=== PATIENT | female | born 1955 | race Caucasian/White ===

== ENCOUNTER 2017-07-15 08:39 | Emergency (ER) | payer BC, OTHER ==
--- NOTE | 2017-07-15 09:11 | Emergency Department Record ---
History of Present Illness - General Chief Complaint: Back Pain/Injury Stated Complaint: BACK PAIN Time Seen by Provider: 07/15/17 08:54 Source: Patient Mode of Arrival: EMS Limitations: No limitations - History of Present Illness Initial Comments: The patient is here due to R mid back and rib pain. The patient fell off a ladder 3 weeks ago and was seen in [place] where she did have she believes rib xrays and a head CT. She was told her xrays were neg and was discharged. The patient had been doing well up until the last 3 days when she developed worsening R lower rib and mid back pain. The pain is much worse with twisting and movement. The patient denies any CP, SOB, AP, or hematuria. EMS found the patient to be in quite a bit of pain so she did receive 100mcg of Fentanyl which did cause her to be nauseated and sweaty. She is feeling better now from that. MD Complaint: Back pain Onset/Timin -: Days(s) Similar Symptoms Previously: No Place: Home Radiation: None Severity: Moderate Quality: Other Consistency: Constant Improves With: None Context: Fall Associated Symptoms: Nausea/vomiting Treatments Prior to Arrival: NSAIDS, Prescription analgesics - Related Data Home Medications Medication Instructions Recorded Confirmed Last Taken Ascorbic Acid [Vitamin C] 2 tab PO DAILY 07/15/17 07/15/17 07/15/17 Atorvastatin Calcium [Lipitor] 40 mg PO QHS 07/15/17 07/15/17 07/14/17 Biotin 1 mg PO DAILY 07/15/17 07/15/17 07/15/17 Bisoprol/Hydrochlorothiazide 1 each PO BID 07/15/17 07/15/17 07/15/17 [Bisoprolol-Hctz 10-6.25 mg Tab] Calcium Carbonate [Calcium] 600 mg PO BID 07/15/17 07/15/17 07/15/17 Citalopram Hydrobromide 20 mg PO BID 07/15/17 07/15/17 07/15/17 [Citalopram HBr] Cyanocobalamin (Vitamin B-12) 2,500 mcg SL DAILY 07/15/17 07/15/17 07/15/17 [Vitamin B-12] Nitrofurantoin [place] [Macrobid] 100 mg PO QHS 07/15/17 07/15/17 07/14/17 [place]-3S/Dha/Epa/Fish Oil [Fish 1 tab PO DAILY 07/15/17 07/15/17 07/15/17 Oil 1,200 mg Softgel] Previous Rx's Medication Instructions Recorded Naproxen [Naprosyn] 500 mg PO BID #14 tablet. 07/15/17 Orphenadrine Citrate [Norflex] 100 mg PO Q12H PRN #14 tab 07/15/17 Allergies Allergy/AdvReac Type Severity Reaction Status Date / Time metronidazole [From Flagyl] Allergy RASH Verified 07/15/17 08:57 promethazine [From Phenergan] AdvReac HYPERSENSIT Verified 07/15/17 08:57 IVITY sulfamethoxazole AdvReac NAUSEA AND Verified 07/15/17 08:57 [From Bactrim] VOMITING trimethoprim [From Bactrim] AdvReac NAUSEA AND Verified 07/15/17 08:57 VOMITING Travel Screening - Travel/Exposure Within Last 30 Days Have you traveled within the last 30 days?: No - Travel/Exposure Within Last Year Have you traveled outside the [place] in the last year?: No - Additonal Travel Details Have you been exposed to anyone with a communicable illness?: No - Travel Symptoms Symptom Screening: None Review of Systems Constitutional: Denies: Chills, Fever Eyes: Denies: Eye discharge ENT: Denies: Congestion Respiratory: Denies: Cough Past Medical History - SOCIAL HISTORY Smoking Status: Never smoker Alcohol Use: Occasional Drug Use: None - RESPIRATORY Hx Respiratory Disorders: No Hx Asthma: No - CARDIOVASCULAR Hx Cardio Disorders: Yes Hx Hypertension: Yes Comment:: high cholesterol - NEURO Hx Neuro Disorders: No - GI Hx GI Disorders: Yes Hx Diverticulitis: Yes - Hx Genitourinary Disorders: No Hx UTI: Yes - ENDOCRINE Hx Endocrine Disorders: No - MUSCULOSKELETAL Hx Musculoskeletal Disorders: No - PSYCH Hx Psych Problems: Yes Hx Depression: Yes Family Medical History Any Significant Family History?: No Physical Exam - General General Appearance: Alert, Oriented x3, Cooperative, No acute distress - Head Head exam: Atraumatic, Normocephalic, Normal inspection - Eye Eye exam: Normal appearance, PERRL - Neck Neck exam: Normal inspection, Full ROM. negative: Tenderness - Respiratory Respiratory exam: Normal lung sounds bilaterally, Chest wall tenderness (The R mid to lower ribs are extremely tender to palpation. ). negative: Accessory muscle use, Decreased breath sounds, Respiratory distress - Cardiovascular Cardiovascular Exam: Regular rate, Normal rhythm, Normal heart sounds, Bradycardia - GI/Abdominal GI/Abdominal exam: Soft, Normal bowel sounds. negative: Guarding, Rebound, Rigid, Tenderness - Extremities Extremities exam: Normal inspection, Full ROM, Normal capillary refill. negative: Tenderness Image of Full Body: 1 - Location of tenderness with spasm. - Back Back exam: Reports: Normal inspection, Muscle spasm, Paraspinal tenderness (The pain is very reproducible in the R lateral mid thoracic area.). Denies: CVA tenderness (R), CVA tenderness (L), Vertebral tenderness - Neurological Neurological exam: Alert. negative: Motor sensory deficit Course Vital Signs 07/15/17 08:43 Temperature 98.1 F Pulse Rate 49 L Respiratory 18 Rate Blood Pressure 164/84 Pulse Ox 98 - Reevaluation(s) Reevaluation #1: The patient is doing better. Her sweating has resolved since the fentanyl has wore off. 07/15/17 10:10 07/15/17 13:05 Reevaluation #2: The patient is doing better at this time. She has no pain when not moving. She is able to get up and walk with spasms in the R mid back area with twisting and moving. The patient denies any AP, weakness, lightheadedness or any sweating. 07/15/17 10:44 07/15/17 11:25 The patient is still doing well and does feel comfortable going home. Medical Decision Making - Data Complexity MDM Data: Labs Ordered and/or Reviewed, X-Ray Ordered and/or Reviewed, EKG Ordered and/or Reviewed (Sinus Peterson at 42, O/W neg.) - Lab Data Result diagrams: 07/15/17 09:20 07/15/17 09:20 - EKG Data -: EKG Interpreted by Me - Radiology Data Radiology results: Report reviewed (R Ribs and Chest: Neg per rad.) Disposition Disposition: Discharge Clinical Impression: Muscle spasm of back Disposition: Home, Self-Care Condition: (1) Good Instructions: Muscle Spasm (ED) Additional Instructions: Please rest when possible with no lifting. Take Naprosyn for pain and use Norflex for a muscle relaxer. Return to the ER for any increased pain, vomiting , or any abdominal or chest pain. Please see your PCP for recheck next week and to also possibly adjust your BP medicines. Prescriptions: Naproxen [Naprosyn] 500 mg PO BID #14 tablet. Orphenadrine Citrate [Norflex] 100 mg PO Q12H PRN #14 tab PRN Reason: Analgesia Forms: Patient Portal Access Time of Disposition: 11:30 Quality - Quality Measures Quality Measures: N/A - Blood Pressure Screening View Details: Yes Does Patient Have Any of the Following: No Blood Pressure Classification: Pre-Hypertensive BP Reading Systolic Measurement: 137 Diastolic Measurement: 72 Screening for High Blood Pressure: < Pre-Hypertensive BP, F/U Documented > [ [id number]] Pre-Hypertensive Follow-up Interventions: Referral to alternative/primary care provider.
[2017-07-15 09:24] LABS: BASO % 0.3 % (0-6); EOS % 2.1 % (0-6); GRAN % 74.4 % (47-80); HEMATOCRIT 39.5 % (35.0-47.0); HEMOGLOBIN 13.7 gm/dl (11.6-16.0); LYMPH % 15.3 % (16-45); MEAN CORPUSCULAR HGB CONC 34.7 g/dl (32-36); MEAN PLATELET VOLUME 9.8 fl (7.4-10.4); MONO % 7.9 % (0-9); PLATELET COUNT 236 K/uL (130-400); RED BLOOD COUNT 4.03 M/uL (3.80-5.40); RED CELL DISTRIBUTION WIDTH 12.8 % (11.5-14.5); WHITE BLOOD COUNT W/O DIFF 6.2 K/uL (4.2-12.2)
[2017-07-15 09:36] LABS: ALB/GLOB RATIO 1.6 (1.1-1.8); ALBUMIN 4.1 gm/dL (3.5-5.0); ALKALINE PHOSPHATASE 98 U/L (38-126); ALT/SGPT 60 U/L (9-52); AST/SGOT 30 U/L (14-36); BILIRUBIN,TOTAL 0.72 mg/dL (0.2-1.3); BLOOD UREA NITROGEN 18 mg/dL (7-17); CARBON DIOXIDE 26.1 mmol/L (22-30); CREATINE PHOSPHOKINASE 116 U/L (30-135); CREATININE 0.9 mg/dL (0.52-1.04); EST GLOMERULAR FILTRATION RATE > 60 ml/min; GLUCOSE,RANDOM 194 mg/dL (70-110); TOTAL PROTEIN 6.7 gm/dL (6.3-8.2)
[2017-07-15 09:38] LABS: URINE APPEARANCE CLEAR; URINE BILIRUBIN NEGATIVE (NEGATIVE); URINE BLOOD NEGATIVE (NEGATIVE); URINE COLOR YELLOW; URINE GLUCOSE (UA) NEGATIVE (NEGATIVE); URINE KETONE 15 mg/dL (NEGATIVE); URINE LEUKOCYTE ESTERASE TRACE (NEGATIVE); URINE NITRITE NEGATIVE (NEGATIVE); URINE PROTEIN NEGATIVE (NEGATIVE); URINE UROBILINOGEN 0.2 E.U./dL (0.20 - 1.00)
[2017-07-15 09:46] LABS: URINE BACTERIA 1+; URINE EPITHELIAL CELLS 0 - 2 (FEW); URINE RBC NONE SEEN (NONE SEEN)
[2017-07-15 09:48] LABS: CKMB 0.9 ug/L (0-6)
[2017-07-15] MEDS ORDERED: KETOROLAC 30 MG/ML VIAL IVP ONE (09:48)
[2017-07-15 09:51] LABS: TROPONIN I < 0.012 ng/mL (0.00-0.034)
[2017-07-15] MEDS ORDERED: ORPHENADRINE CITRATE 60MG/2ML VIAL IM ONE (10:43)
[2017-07-15 12:19] LABS: ANION GAP 7.9 (7-16)
--- NOTE | 2017-07-16 08:08 | RADIOLOGY REPORT ---
EXAM: RIBS, RIGHT W/PA CHEST HISTORY: PAIN. TECHNIQUE: Single PA view of the chest. Multiple views of the right rib cage were performed. FINDINGS: Heart size normal. Lung hassan are clear. No rib fracture deformity. No pneumothorax. Vascular stent in place. IMPRESSION: NEGATIVE PA CHEST/RIGHT RIB SERIES. JOB NUMBER: [id number] MTDD
== END 2017-07-15 11:50 | disposition home or self-care (01) ==
LOC: ER 08:39
DX: M62.830 Muscle spasm of back (principal); R07.81 Pleurodynia; I10 Essential (primary) hypertension
CPT/HCPCS: 99284 ×2; 96374; 96372; 82550; 85025; 82553; 84484; 80053; 81001; 71101; 93005; 93010; J1885; J2360